=== PATIENT | female | born 1990 | race Caucasian/White ===

== ENCOUNTER → 2025-03-30 11:54 | Outpatient (REF) | payer BC, SELFPAY | LOC: MRI 3T 11:54 | PROVIDERS: ATTENDING PHYSICIAN Family Medicine | DX: M25.512 Pain in left shoulder (principal); R29.898 Other symptoms and signs involving the musculoskeletal system; M25.612 Stiffness of left shoulder, not elsewhere classified | CPT/HCPCS: 73221 ==